=== PATIENT | female | born 1945 | race Caucasian/White ===

== ENCOUNTER → 2017-05-04 | Outpatient (CLI) | payer BC ==
[~2017-05-04] MED LIST: LEVO75TA PO; SIMV20TA2 PO
--- NOTE | 2017-05-04 15:44 | MAMMOGRAPHY REPORT ---
BILATERAL DIGITAL SCREENING MAMMOGRAM WITH CAD: 05/04/2017 CLINICAL HISTORY: Routine screening examination. TECHNIQUE: Bilateral CC, MLO and repeat right MLO views were obtained. Current study was also evalua lemuel with a Computer Aided Detection (CAD) system. COMPARISON: Comparison is made to exams dated: 04/30/2016 mammogram, 04/26/2015 mammogram, 04/24/2014 m ammogram, 04/21/2013 mammogram, 04/21/2012 mammogram, and 12/25/2010 mammogram - [facility] enter. BREAST COMPOSITION: The tissue of both breasts is heterogeneously dense, which may obscure small mas ses. FINDINGS: There is a 5 mm focal asymmetry with possible associated microcalcification in the lower i nner middle one third of the left breast, for which additional spot compression tomosynthesis and spo t magnification views with possible ultrasound are recommended. There is a stable benign circumscribed 15 mm mass with associated popcorn calcification in the 4:00 p osterior left breast. No other new suspicious mass, architectural distortion or cluster of microcalc ifications is seen bilaterally. IMPRESSION: ACR BI-RADS CATEGORY 0: INCOMPLETE EVALUATION: NEED ADDITIONAL IMAGING EVALUATION The 5 mm focal asymmetry with possible associated microcalcification in the lower inner left breast n eeds additional evaluation. The patient will be called to schedule an appointment. Approximately 10% of breast cancers are not detected with mammography. A negative mammographic report should not delay biopsy if a clinically suggestive mass is present. Roselia Nye M.D. ay/:05/04/2017 14:49:03 Food Technology Teacher: Nahomi SANTAMARIA(Trev)(Mariah)(BUTCH), [facility] letter sent: Addl Imaging 0 BI-RADS Code: ACR BI-RADS Category 0: Incomplete Evaluation: Need Additional Imaging Evaluation
== END | disposition home or self-care (01) ==
LOC: C.MAMM 13:13
PROVIDERS: ATTEND Family Medicine
DX: Z12.31 Encounter for screening mammogram for malignant neoplasm of breast (principal); N64.89 Other specified disorders of breast

== ENCOUNTER → 2017-05-13 | Outpatient (CLI) | payer BC ==
--- NOTE | 2017-05-13 13:40 | MAMMOGRAPHY REPORT ---
UNILATERAL LEFT DIGITAL DIAGNOSTIC MAMMOGRAM TOMOSYNTHESIS AND TARGETED LEFT ULTRASOUND: 05/13/2017 CLINICAL HISTORY: 71-year-old woman called back from screening mammography for a 5 mm focal asymmetry with associated microcalcification in the lower inner quadrant of the left breast. TECHNIQUE: Spot compression left CC and MLO 2-D and tomosynthesis images and spot magnification left CC and ML views were obtained. Based on findings from the spot compression tomosynthesis views, stephanie tional full-field CC and MLO tomosynthesis images were obtained. COMPARISON: Comparison is made to exams dated: 05/04/2017 mammogram, 04/30/2016 mammogram, 04/26/2015 m ammogram, 04/24/2014 mammogram, 04/21/2013 mammogram, and 12/25/2010 mammogram - [facility]. BREAST COMPOSITION: There are scattered areas of fibroglandular density in the left breast. FINDINGS: There is persistence of a small, lobulated and circumscribed 5.2 x 2.8 x 4.3 mm mass in th e lower inner anterior left breast. There is associated microcalcification, which layers in the depe ndent portion of this mass, most likely representing milk of calcium. Further evaluation with ultras ound was performed. Incidentally identified on the spot compression views is a small focal area of architectural distorti on (best seen on CC tomosynthesis slice 15 and MLO tomosynthesis slice 29) further evaluation with ul trasound was also performed to assess for this area of distortion. Then full-field right CC and MLO tomosynthesis images were obtained, to assess for any other 2-D occu lt areas of distortion. However, no other areas of architectural distortion are definitely identifie d. No other obvious mass or asymmetry is seen on the tomosynthesis images. Targeted ultrasound was performed in the lower inner quadrant of the left breast. There is a cystic mass with internal echogenic reflectors in the 8:00 left breast, 2 cm from the nipple, measuring appr oximately 3.8 x 1.6 x 3.2 mm. This most likely corresponds to the 4 mm mass containing calcification s and is compatible with a benign cyst. No other discrete solid or cystic mass or evidence of susi ectural distortion is definitely identified. Therefore, the small focal area of architectural distortion in the left lower inner quadrant remains indeterminate and definitive characterization with a tomosynthesis guided biopsy is recommended. IMPRESSION: ACR BI-RADS CATEGORY 4: SUSPICIOUS, TARGETED ULTRASOUND ACR BI-RADS CATEGORY 4: SUSPICIO US 1. Left breast stereotactic tomosynthesis guided biopsy is recommended for a small focal area of arc hitectural distortion in the lower inner anterior left breast. 2. A small focal asymmetry seen on screening mammography in the left lower inner quadrant represents a benign cyst containing internal layering calcifications. 3. There is no other area of architectural distortion in either breast seen on the tomosynthesis asif ges. These results and recommendations were discussed with the patient at the time of the exam. She tenta tively scheduled the left breast tomosynthesis guided biopsy prior to leaving our department. Approximately 10% of breast cancers are not detected with mammography. A negative mammographic report should not delay biopsy if a clinically suggestive mass is present. Roselia Nye M.D. ay/:05/13/2017 09:59:39 Line Supervisor: Silvia LUKE)(Mariah), [facility] letter sent: Abnormal 4/5 BI-RADS Code: ACR BI-RADS Category 4: Suspicious Ultrasound BI-RADS: ACR BI-RADS Category 4: Suspici ous
== END | disposition home or self-care (01) ==
LOC: C.MAMM 07:59
PROVIDERS: ATTEND Family Medicine
DX: N64.89 Other specified disorders of breast (principal)

== ENCOUNTER → 2017-05-20 | Outpatient (CLI) | payer BC ==
--- NOTE | 2017-05-20 14:26 | Discharge Instructions ---
Discharge Instructions Procedure Procedure Date: May 20, 2017. Reason for visit: Left Distortion/Jesse Bx. Discharge Discharge Date: May 20, 2017. Discharge Diagnosis: post left breast stereotactic guided biopsy Medications Restart Stopped Medication(s): May restart Aspirin later today or tomorrow as long as no bleeding through bandages. Instructions Activity Recommendations: Additional Limitations (see below) Return to School/Work: no limitations Recommended Home Diet: No Limitations Provider Instructions: ACTIVITY RECOMMENDATIONS: * No lifting, pushing, pulling or exercising the affected side for three days. RETURN TO SCHOOL/WORK: * You may return to work/school after the procedure, but do not perform any strenuous activities for 24 to 48 hours. MEDICATIONS: * Tylenol (two 325 mg) every four to six hours if needed for mild pain (if not allergic to Tylenol). DIET: * Resume previous diet. SPECIAL CARE INSTRUCTIONS: * Keep biopsy site dry for 24 hours. May shower after 24 hours, but do not soak (bathe) incision. * May remove Tegaderm (plastic patch) tomorrow AFTER showering. * Leave the steri-strips on for one week. Allow the steri-strips to fall off by themselves. If not off after one week, you may remove them. You may place a Bandaid crosswise over the strips, if desired. * Apply ice 10 minutes on and 10 minutes off as needed. * Wear a bra at bedtime to sleep more comfortably for 2-3 days. * Your referring physician should have the results after approximately 5 to 7 business days. * Call for unusual bleeding, fever, drainage, etc or if you have any questions call [phone] during normal business hours or after hours call Dr Nye, . FOLLOW UP VISIT: Follow-up with Referring Physician as scheduled. Allergies Coded Allergies: No Known Allergies (Unverified , 02/09/12) Uncoded Allergies: NKA (Allergy, Unknown, 01/05/15) No Known Allergies [place] Recommendations: Call your doctor if: * Temperature above 101 degrees * Pain not relieved by pain medicine ordered * There is increased drainage or redness from any incision * You have any unanswered questions or concerns. Your Doctors Instructions noted above were prepared by provider Roselia Nye. Patient Signature Section: Patient Instructions Signature Page aMryan Herndon Patient (or Guardian) Signature/Date: I have read and understand the instructions given to me by my caregivers. Caregiver/RN/Doctor Signature/Date: The above-named patient and/or guardian has received patient instructions on this date. + Original Patient Signature Page (only) stays with chart. Please make copy for patient.
--- NOTE | 2017-05-21 07:45 | MAMMOGRAPHY REPORT ---
STEREOTACTIC GUIDED BIOPSY LEFT BREAST: 05/20/2017 CLINICAL HISTORY: Small focal area of architectural distortion in the lower inner anterior left breas t. Patient presents for stereotactic tomosynthesis guided biopsy. COMPARISON: Comparison is made to exams dated: 05/13/2017 mammogram, 05/13/2017 ultrasound, 7 mammogram, 04/30/2016 mammogram, 04/26/2015 mammogram, and 04/24/2014 mammogram - [facility] [address]. PATIENT CONSENT: After explaining the risks, benefits and alternatives of the procedure to the patien t, informed consent was obtained both verbally and in writing. Specific risks include: Bleeding, inf ection, puncture of adjacent structure, pain, nontarget biopsy, sampling error, metal allergy and med ication reaction. PROCEDURE DESCRIPTION: A time out was performed and the left breast was confirmed as the site of biop sy. The patient was placed prone on the stereotactic biopsy table and the breast was placed in CC fr om below compression. A tomosynthesis material damage appraiser image was obtained that redemonstrates the architectural distortion in question. It is amenable to stereotactic tomosynthesis guided biopsy. The skin was p repped with Betadine. 1% buffered lidocaine with and without epinephrine was administered as local a nesthesia. A small skin incision was made. Through the incision, the needle was inserted to the dep th determined by the computer. 10 samples were obtained using a [employer]erveiva 9-gauge vacuum-assisted biopsy device. A metallic marker was then placed at the site of the biopsy. A final post biopsy dalton osynthesis image was obtained which demonstrates adequate sampling of the area of distortion. Hemost asis was achieved after several minutes of manual compression. The patient tolerated the procedure w ell and there was no immediate complication. She left the department in satisfactory condition. The samples were sent to the pathology department in an appropriately labeled container. Postprocedure left CC and LM tomosynthesis views were obtained. There is a new air pocket, small hem atoma and metallic biopsy marker clip in the lower inner anterior left breast, at the site of the bio psied focal area of architectural distortion seen on tomosynthesis imaging. No residual distortion i s currently seen, although may be partially obscured due to hematoma and postbiopsy change. The biop sy marker clip appears displaced superiorly by approximately 3 cm on the postprocedure LM view likely due to accordion effect. IMPRESSION: STEREOTACTIC GUIDED BIOPSY Status posterior tactic tomosynthesis guided biopsy of a small focal area of architectural distortion in the lower inner anterior left breast, with biopsy marker placed at the site. The patient will receive notification of the biopsy results from her referring physician. Roselia Nye M.D. ay/:05/20/2017 14:50:24 Art Specialist: Regina LUKE)(M), [facility]
--- NOTE | 2017-05-21 07:49 | MAMMOGRAPHY REPORT ---
UNILATERAL LEFT DIGITAL DIAGNOSTIC MAMMOGRAM TOMOSYNTHESIS: 05/20/2017 CLINICAL HISTORY: Status post stereotactic tomosynthesis guided biopsy of a small focal area of archi tectural distortion in the lower inner quadrant of the left breast. Please refer to the report from left breast stereotactic tomosynthesis guided biopsy performed at the same time for full detail. IMPRESSION: POST PROCEDURE IMAGING FOR MARKER PLACEMENT Please refer to the report from left breast stereotactic tomosynthesis guided biopsy performed at the same time for full detail. Approximately 10% of breast cancers are not detected with mammography. A negative mammographic report should not delay biopsy if a clinically suggestive mass is present. Roselia Nye M.D. ay/:05/20/2017 14:25:32 Household Appliances Salesperson: Regina SANTAMARIA(Trev)(Mariah), [facility] BI-RADS Code: Post Procedure Imaging For Marker Placement
== END | disposition home or self-care (01) ==
LOC: C.MAMM 13:19
PROVIDERS: ATTEND Family Medicine
DX: R92.8 Other abnormal and inconclusive findings on diagnostic imaging of breast (principal); N64.89 Other specified disorders of breast

== ENCOUNTER → 2017-07-06 | Outpatient (CLI) | payer BC ==
--- NOTE | 2017-07-06 13:58 | DIAGNOSTIC IMAGING REPORT ---
SOFT TISS HEAD/NECK-THYROID CLINICAL HISTORY: 71 years-old Female with CERVICAL LYMPHADENOPATHY. . COMPARISON: Thyroid ultrasound 01/05/2015 TECHNIQUE: Multiple real time sonographic images of the neck were obtained accessing mcintyre scale appearance and color doppler flow. FINDINGS: At area of concern there is a focal normal-appearing lymph node within the right neck adjacent to the carotid vasculature, 1.7 x 0.5 x 1.0 cm with a normal-appearing fatty hilum. No associated cortical thickness. Otherwise, no focal tissue abnormality or collections of the right neck identified. IMPRESSION: Area of concern correlates with a normal-appearing nonenlarged lymph node of the right neck. The above report was generated using voice recognition software. It may contain grammatical, syntax or spelling errors. Electronically signed by: John Salcedo M.D. 07/06/2017 1:57 PM Dictated Date/Time: 07/06/2017 1:55 PM
== END | disposition home or self-care (01) ==
LOC: C.ULTRBC 13:09
PROVIDERS: ATTEND Nurse Practitioner Family
DX: R59.0 Localized enlarged lymph nodes (principal)

== ENCOUNTER → 2017-11-19 | Outpatient (CLI) | payer BC ==
--- NOTE | 2017-11-19 14:56 | MAMMOGRAPHY REPORT ---
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 The patient presents for short interval follow-up. TECHNIQUE: Breast tomosynthesis in addition to standard 2D mammography was performed. Current study was also evaluated with a Computer Aided Detection (CAD) system. Left CC and MLO 2D and tomosynthesi s images and spot magnification left CC and ML views were obtained. COMPARISON: Comparison is made to exams dated: 05/20/2017 mammogram, 05/13/2017 mammogram, 05/04/2017 mammogram, 04/30/2016 mammogram, 04/26/2015 mammogram, and 04/24/2014 mammogram - [facility]. BREAST COMPOSITION: There are scattered areas of fibroglandular density in the left breast. FINDINGS: A biopsy clip is noted within the left lower inner quadrant at the site of the prior stereo tactic biopsy of architectural distortion which yielded benign pathology. There is subtle architectu ral distortion seen at the biopsy site on the CC tomosynthesis images, which could represent residual distortion and/or distortion related to the biopsy. Given the benign pathology on biopsy, the area is probably benign. Given that fibroelastosis was seen on the biopsy, the biopsied distortion likely represents a small radial scar. The options of continued imaging follow-up versus surgical excision were discussed with the patient, and at this time we will continue with imaging follow-up. The remainder of the left breast is stable compared to prior exams, without suspicious masses, calcif ications, or areas of architectural distortion. The small benign-appearing 5 mm mass in the left low er inner quadrant contains internal layering calcifications and was shown to represent a cyst on the prior ultrasound exam. The mass is not significantly changed and is consistent with a benign cyst. Another benign-appearing mass with associated coarse popcorn calcifications in the left posterior viviana ast is stable and consistent with a benign degenerating fibroadenoma. Other scattered benign-appeari ng calcifications are not significantly changed. IMPRESSION: ACR-BI-RADS CATEGORY 3: PROBABLY BENIGN Status post stereotactic biopsy of a small area of architectural distortion within the left lower inn er quadrant; subtle distortion is seen at the biopsy site, which could represent residual distortion or distortion related to the biopsy itself. Given the benign pathology on biopsy, the area is probab ly benign. Recommend bilateral diagnostic tomosynthesis mammograms in 6 months, to reevaluate the bi opsy site and for routine mammography of the right breast. The patient has been verbally notified of the results. Approximately 10% of breast cancers are not detected with mammography. A negative mammographic report should not delay biopsy if a clinically suggestive mass is present. Peggy Scales M.D. ah/:11/19/2017 10:54:44 Traffic Assistant: Regina LUKE)(Mariah), [facility] letter sent: Follow Up Recommended 3 BI-RADS Code: ACR-BI-RADS Category 3: Probably Benign
== END | disposition home or self-care (01) ==
LOC: C.MAMM 09:46
PROVIDERS: ATTEND Family Medicine
DX: N64.9 Disorder of breast, unspecified (principal)